=== PATIENT | female | born 1975 | race Caucasian/White ===

== ENCOUNTER 2018-12-10 18:09 | Emergency (ER) | payer BC ==
[~2018-12-10] VITALS: Ht 154.9 cm; Wt 58.6 kg
[~2018-12-10 18:09] MED LIST: AMIT100T2; GLYB5TAB3; MTF1000T; MUSCLE RELAXER; PIOG15TA12; RTPRO5
[2018-12-10 18:18] VITALS: Ht 154.9 cm; Wt 58.6 kg
[2018-12-10] MEDS ORDERED: KETOROLAC 60 MG INJ IM STA (20:35)
[2018-12-10] MEDS ORDERED: ONDANSETRON (ODT) 4 MG TAB ODT STA (20:43)
[2018-12-10] MEDS ORDERED: HYDROmorphONE 0.5 MG/0.5 ML SYG IM STA (20:43)
--- NOTE | 2018-12-10 20:43 | ERD ---
ER Documentation Chief Complaint Chief Complaint GRICEL BUTLER: non traumatic back pain w/ sudden onset this afternoon HPI 43-year-old female with history of chronic back pain states that she was walking in the store earlier today at 2 PM and she felt her back give out on her. Since then she states she has been unable to walk. Denies any trauma or injury. States that she is never had pain like this before. States that she is in pain management for her back pain but is not gone to the doctor in 3 months. Denies any current treatments. Denies incontinence, saddle numbness. ROS All systems reviewed and are negative except as per history of present illness. Medications Home Meds Reported Medications [Muscle Relaxer] No Conflict Check 01/29/11 Amitriptyline Hcl* (Amitriptyline Hcl*) 100 Mg Tablet 01/29/11 Pioglitazone Hcl* (Actos*) 15 Mg Tablet 01/29/11 Glyburide* (Glyburide*) 5 Mg Tablet 01/29/11 Albuterol Sulfate* (Proventil* Neb) 0.5 Ml Nebu 11/06/10 Metformin* (Glucophage*) 1,000 Mg Tablet 11/06/10 Allergies Allergies: Coded Allergies: Penicillins (Verified Allergy, Severe, ANAPHILACTIC, 09/18/12) moxifloxacin HCl (Verified Allergy, Mild, 09/18/12) mild rash PMhx/Soc History of Surgery: Yes (LUNG SURGERY) Anesthesia Reaction: Yes Hx Neurological Disorder: No Hx Respiratory Disorders: Yes (ASTHMA ) Hx Cardiac Disorders: Yes (TACHYCARDIA) Hx Psychiatric Problems: No Hx Miscellaneous Medical Probl: Yes (DM) Hx Alcohol Use: No Hx Substance Use: No Hx Tobacco Use: No Smoking Status: Never smoker FmHx Family History: No diabetes, No coronary disease, No other Physical Exam Vitals Vital Signs Date Temp Pulse Resp B/P (MAP) Pulse Ox O2 O2 Flow FiO2 Time Delivery Rate 12/11/18 97.9 70 18 131/79 99 Room Air 00:47 (96) 12/10/18 98.2 62 16 131/86 99 18:18 (101) Physical Exam Const: No acute distress Head: Atraumatic Eyes: Normal Conjunctiva ENT: Normal External Ears, Nose and Mouth. Neck: Full range of motion. No meningismus. Resp: Clear to auscultation bilaterally Cardio: Regular rate and rhythm, no murmurs Abd: Soft, non tender, non distended. Normal bowel sounds Skin: No petechiae or rashes Back: No midline or flank tenderness. Unable to assess range of motion due to patient's and ambulatory status. Ext: No cyanosis, or edema. Patient unable to move lower legs. Lower extremity sensation and pulses intact. No bony deformities noted. Neur: Awake and alert Psych: Normal Mood and Affect Result Diagram: 12/11/18 0345 12/11/18 0345 Results 24 hrs Laboratory Tests Test 12/10/18 19:08 12/11/18 03:45 Bedside Glucose 81 mg/dL White Blood Count 6.1 10^3/ul Red Blood Count 3.47 10^6/ul Hemoglobin 9.7 g/dl Hematocrit 30.2 % Mean Corpuscular Volume 87.0 fl Mean Corpuscular Hemoglobin 28.0 pg Mean Corpuscular Hemoglobin Concent 32.1 g/dl Red Cell Distribution Width 14.1 % Platelet Count 234 10^3/UL Mean Platelet Volume 11.7 fl Immature Granulocytes % 0.500 % Neutrophils % 38.7 % Lymphocytes % 45.8 % Monocytes % 11.2 % Eosinophils % 3.3 % Basophils % 0.5 % Nucleated Red Blood Cells % 0.0 /100WBC Immature Granulocytes # 0.030 10^3/ul Neutrophils # 2.4 10^3/ul Lymphocytes # 2.8 10^3/ul Monocytes # 0.7 10^3/ul Eosinophils # 0.2 10^3/ul Basophils # 0.0 10^3/ul Nucleated Red Blood Cells # 0.0 10^3/ul Sodium Level 141 mmol/L Potassium Level 3.8 mmol/L Chloride Level 109 mmol/L Carbon Dioxide Level 27 mmol/L Anion Gap 5 Blood Urea Nitrogen 14 mg/dl Creatinine 0.52 mg/dl Est Glomerular Filtrat Rate mL/min > 60 mL/min Glucose Level 84 mg/dl Calcium Level 8.7 mg/dl Current Medications Medications Dose Sig/Khoa Start Time Status Last (Trade) Ordered Route PRN Stop Time Admin Dose Reason Admin Ketorolac 60 mg ONCE STAT 12/10/18 DC 12/10/18 Tromethamine IM 20:35 12/10/18 20:49 (Toradol) 20:38 1 tab ONCE ONCE 12/10/18 DC Acetaminophen PO 21:00 12/10/18 / 21:01 Hydrocodone Bitart ([place] (5/325)) 1 mg ONCE STAT 12/10/18 DC 12/10/18 Hydromorphone IM 20:43 12/10/18 20:49 HCl 20:45 (Dilaudid) Ondansetron 8 mg ONCE STAT 12/10/18 DC 12/10/18 HCl (Zofran ODT 20:43 12/10/18 20:55 Odt) 20:45 Diazepam 5 mg ONCE ONCE 12/11/18 DC 12/11/18 (Valium) IV 00:00 12/11/18 00:07 00:01 Procedures/MDM DIAGNOSTIC IMAGING REPORT Patient: DINO GRUBER : 1975 Age: 43 Sex: F MR #: [id number] DOS: 12/10/182034 Ordering MD: JUAN BARKER Location: [facility] Room/Bed: PROCEDURE: CT Lumbar Spine Without Intravenous Contrast CLINICAL INDICATION: Unable to walk. Low back pain. TECHNIQUE: Axial computed tomography images of the lumbar spine without intravenous contrast. Sagittal and coronal reformatted images were created and reviewed. CTDIvol (mGy) = 13.62; total DLP (mGy-cm) = 334.00. This CT exam was performed using one or more of the following dose reduction techniques: automated exposure control, adjustment of the mA and/or kV according to patient size, and/or use of iterative reconstruction technique. DICOM images are available. COMPARISON: None FINDINGS: VERTEBRAE: Vertebral body heights are preserved. No compression fractures are identified. Vertebral body alignment is physiologic. SOFT TISSUES: Unremarkable. DISCS/SPINAL CANAL/NEURAL FORAMINA: L1-L2: Unremarkable. No significant disc disease. No stenosis. L2-L3: Unremarkable. No significant disc disease. No stenosis. L3-L4: Mild disc bulge at L3-4. No stenosis. L4-L5: Mild disc bulge at L4-5. No stenosis. L5-S1: Mild disc narrowing at L5-S1. 5 mm posterior disc protrusion. The disc abuts, but does not displace the bilateral S1 nerve roots. No spinal canal stenosis. Neural foramina appear patent. IMPRESSION: 1. 5 mm posterior disc protrusion at L5-S1. The disc protrusion abuts, but does not displace the bilateral S1 nerve roots. No spinal canal stenosis. 2. Mild disc bulge is noted incidentally at L3-4 and L4-5. No spinal stenosis. 3. No acute osseous abnormality. RPTAT: [facility] Melvi Houston, Physician Real Estate Representative Date Time Electronically viewed and signed by Melvi Houston, Physician Real Estate Representative on 12/10/2018 22:40 RmC/ CC: JUAN BARKER [phone] MDM: CT results showed bulging disks. Patient was given 1 mg of Dilaudid IM in the ER but still had pain and refused to walk. Patient was given 5 mg IV Valium and still refused to walk. I discussed the case with Dr. Estevez my supervising physician and he said if patient is unwilling to walk and would like to be admitted and we could do so. At bedside I try to assist patient in walking boots patient was unable and refused. I told patient that if she could not walk then we would have to admit her and she agreed to be admitted. Patient was admitted. Departure Diagnosis: Primary Impression: Back pain Back pain location: low back pain Chronicity: acute Back pain laterality: unspecified Sciatica presence: with sciatica Sciatica laterality: bilateral sciatica Qualified Codes: M54.42 - Lumbago with sciatica, left side; M54.41 - Lumbago with sciatica, right side Condition: Serious JUAN BARKER December 10, 2018 20:43
[2018-12-10] MEDS ORDERED: HYDROCODONE/APAP (5/325) TAB PO ONE (21:00)
[2018-12-11] MEDS ORDERED: DIAZEPAM 5 MG/ML SYG IV ONE
[2018-12-11 00:47] VITALS: BP 131/79; PULSE 70; RESP 18
--- NOTE | 2018-12-11 04:34 | QN ---
Documentation Comment I have seen and evaluated the patient along with the PA and/or [employer] provider. I agree with the evaluation and plan of care. Please see their documentation for full ER course and evaluation. In short: The patient states that she rotated and has worsening back pain and now is unable to move her legs. On exam: The patient is sitting and resting comfortably. However when I try to examine her legs she is holding her hips in a flexed position and knees in a flexed position. When trying to straighten her legs the patient pulls against my force. Patient has good sensation to bilateral lower extremities, intact reflexes. The patient's limited movement seems to be behavioral. Assessment and plan: The patient has CT that shows some chronic disc disease. The patient is describing a inability to move her legs. It is unclear if this is related to pain, actual neurologic process versus malingering. Based on my clinical exam I believe this is most consistent with malingering. The patient is actively pulling against my exam and seems to have good strength in her legs. However, despite doses of pain medication, muscle relaxant medication and anxiolysis the patient continues to state that she cannot walk. We have attempted multiple times over 9-hour timeframe to get the patient to move and walk but she is refusing. While I have a strong suspicion for malingering I cannot get the patient to ambulate. At this point the patient requires admission for pain control, PT OT and possible placement. Of note I have a low clinical concern for cauda equina or cord compression. However given that the patient refuses to move her legs we discussed MRI imaging. The patient is not a candidate given metal in her jaw. Unfortunately this imaging cannot be obtained. No indication for emergent neurosurgical consultation. The patient is capitated to outside facility. I have discussed with case management and we are working on transfer at this time. BG ELIZALDE MD December 11, 2018 04:34
[2018-12-11] MEDS ORDERED: HYDROCODONE/APAP (10/325) TAB PO ONE (05:30)
[2018-12-11] MEDS ORDERED: DIAZ5TAB PO (05:46)
== END 2018-12-11 06:05 | disposition home or self-care (01) ==
LOC: FTE 18:09 → E/R 12-11 06:05
DX: M54.42 Lumbago with sciatica, left side (principal); E11.9 Type 2 diabetes mellitus without complications; J45.909 Unspecified asthma, uncomplicated; Z79.84 Long term (current) use of oral hypoglycemic drugs
CPT/HCPCS: 72131; 80048; 82962; 85025; 96372; 96374; J1170; J1885; J3360; Z7502; Z7610